=== PATIENT | male | born 1985 ===

== ENCOUNTER 2017-05-20 11:39 | Emergency (ER) | payer MEDICAID ==
[2017-05-20 11:46] VITALS: BP 124/74; PULSE 71; RESP 17; TEMP 98.6; O2SAT 98; BMI 20.3
--- NOTE | 2017-05-20 12:46 | ED PDOC ---
HPI: Abdomen Time Seen by Provider: 05/20/17 12:08 Chief Complaint (Nursing): Abdominal Pain Chief Complaint (Provider): Constipation, Fever History Per: Patient History/Exam Limitations: no limitations Onset/Duration Of Symptoms: Days (x2) Current Symptoms Are (Timing): Still Present Additional Complaint(s): Yoel is a 32 y/o male who presents to the ED complaining of a tactile fever for 2 days. Patient reports that he also has not had a bowel movement in 2 days , and is having rectal pain, which worsens when trying to have a bowel movement. He denies any rectal bleeding. PMD: Provider TBD Past Medical History Reviewed: Historical Data, Nursing Documentation, Vital Signs Vital Signs: Last Vital Signs Temp 98.6 F 05/20/17 11:46 Pulse 71 05/20/17 11:46 Resp 17 05/20/17 11:46 BP 124/74 05/20/17 11:46 Pulse Ox 98 05/20/17 12:49 - Medical History PMH: Depression, Seizures - Family History Family History: States: Unknown Family Hx - Social History Current smoker - smoking cessation education provided: No Alcohol: None Drugs: Denies - Home Medications Home Medications: Ambulatory Orders Medication Instructions Recorded Acetaminophen/Butalbital/Caf 05/04/15 [Fioricet] Carbamazepine [Carbamazapine] 800 mg 05/04/15 Famotidine [Pepcid] 20 mg PO BID 05/04/15 Lamotrigine [Lamictal] 05/04/15 Carbamazepine 400 mg PO BID #90 tablet 06/19/16 Docusate [Colace] 100 mg PO Q12H PRN #10 cap 05/20/17 Hydrocortisone 2.5% (Rectal) 30 applic DE BID #1 tube 05/20/17 [Anusol-HC] - Allergies Allergies/Adverse Reactions: Allergies Allergy/AdvReac Type Severity Reaction Status Date / Time No Known Allergies Allergy Verified 05/04/15 14:36 Review of Systems ROS Statement: Except As Marked, All Systems Reviewed And Found Negative Constitutional: Positive for: Fever Gastrointestinal: Positive for: Constipation, Rectal Pain. Negative for: Other (Bleeding) Physical Exam - Reviewed Nursing Documentation Reviewed: Yes Vital Signs Reviewed: Yes - Physical Exam Appears: Positive for: Non-toxic, No Acute Distress Head Exam: Positive for: ATRAUMATIC, NORMAL INSPECTION, NORMOCEPHALIC Skin: Positive for: Normal Color, Warm, Dry Eye Exam: Positive for: Normal appearance Neck: Positive for: Normal Cardiovascular/Chest: Positive for: Regular Rate, Rhythm. Negative for: Murmur Respiratory: Positive for: Normal Breath Sounds. Negative for: Respiratory Distress Gastrointestinal/Abdominal: Positive for: Normal Exam, Bowel Sounds, Soft. Negative for: Tenderness, Distended, Guarding Rectal: Positive for: Normal Exam (External exam - small fissure ) Neurologic/Psych: Positive for: Alert, Oriented - ECG O2 Sat by Pulse Oximetry: 98 (RA) Pulse Ox Interpretation: Normal Medical Decision Making Medical Decision Making: Time: 12:26 Initial Plan: --Ordered X-Ray Abdomen w/ Chest Scribe Attestation: Documented by Rufina Mann, acting as a scribe for Nilam Schulz PA-C Provider Scribe Attestation: All medical record entries made by the Scribe were at my direction and personally dictated by me. I have reviewed the chart and agree that the record accurately reflects my personal performance of the history, physical exam, medical decision making, and the department course for this patient. I have also personally directed, reviewed, and agree with the discharge instructions and disposition. Disposition - Clinical Impression Clinical Impression: Anal fissure, Constipation - Patient ED Disposition Is Patient to be Admitted: No Counseled Patient/Family Regarding: Diagnosis, Need For Followup, Rx Given - Disposition Disposition: Routine/Home Disposition Time: 14:32 Condition: GOOD Prescriptions: Docusate [Colace] 100 mg PO Q12H PRN #10 cap PRN Reason: Constipation Hydrocortisone 2.5% (Rectal) [Anusol-HC] 30 applic DE BID #1 tube Instructions: Anal Fissure (ED) Forms: [employer] (Albanian)
--- NOTE | 2017-05-20 14:28 | RAD ---
HISTORY: constipation COMPARISON: No prior. FINDINGS: BOWEL: There mildly distended central small bowel loops with multiple air-fluid levels identified free gas seen throughout the colon as well as retained fecal material. There is no prominent free intrarenal gas. Overall, the pattern is nonspecific. Bold a developing ileus may be present though a distal small bowel obstruction is difficult to completely exclude. Clinical correlation and of radiographic or CT follow-up is advised. BONES: Normal. OTHER FINDINGS: None. IMPRESSION: Nonspecific bowel gas pattern is appreciated consider follow-up radiographic or even CT imaging as clinically warranted. Please see discussion above.
== END 2017-05-20 13:45 | disposition home or self-care (01) ==
LOC: H.ER 11:39
DX: K59.00 Constipation, unspecified (principal); K60.2 Anal fissure, unspecified; F32.9 Major depressive disorder, single episode, unspecified; G40.909 Epilepsy, unspecified, not intractable, without status epilepticus

== ENCOUNTER 2017-05-25 03:38 | Emergency (ER) | payer MEDICAID ==
[2017-05-25 03:45] VITALS: BMI 19.2
--- NOTE | 2017-05-25 04:29 | ED PDOC ---
HPI: Seizure Time Seen by Provider: 05/25/17 03:44 Chief Complaint (Nursing): Seizure Chief Complaint (Provider): Seizure History Per: Patient, EMS, Family History/Exam Limitations: no limitations Number Of Seizures: Multiple Quality Of Seizure: Generalized Additional Complaint(s): Patient is a 32 y/o male with a history of epilepsy who was brought to the ED via EMS after he had 2 minute generalized tonic-clonic seizures. His mother states patient had a prolonged post-ictal phase which concerned her. He complains of a mild headache which he says he commonly gets after seizures. He denies cough, shortness of breath, chest pain, fever, or neck pain. Patient was incontinent of urine on arrival PMD: None Provided Past Medical History Reviewed: Historical Data, Nursing Documentation, Vital Signs Vital Signs: Last Vital Signs Temp 98.4 F 05/25/17 03:51 Pulse 75 05/25/17 03:51 Resp 18 05/25/17 03:51 BP 113/66 05/25/17 03:51 Pulse Ox 100 05/25/17 04:30 - Medical History PMH: Depression, Seizures - Family History Family History: States: Unknown Family Hx - Social History Current smoker - smoking cessation education provided: No Ex-Smoker (has not smoked in the last 12 months): No Alcohol: None Drugs: Denies - Home Medications Home Medications: Ambulatory Orders Medication Instructions Recorded Acetaminophen/Butalbital/Caf 05/04/15 [Fioricet] Carbamazepine [Carbamazapine] 800 mg 05/04/15 Famotidine [Pepcid] 20 mg PO BID 05/04/15 Lamotrigine [Lamictal] 05/04/15 Carbamazepine 400 mg PO BID #90 tablet 06/19/16 Docusate [Colace] 100 mg PO Q12H PRN #10 cap 05/20/17 Hydrocortisone 2.5% (Rectal) 30 applic DC BID #1 tube 05/20/17 [Anusol-HC] - Allergies Allergies/Adverse Reactions: Allergies Allergy/AdvReac Type Severity Reaction Status Date / Time No Known Allergies Allergy Verified 05/04/15 14:36 Review of Systems ROS Statement: Except As Marked, All Systems Reviewed And Found Negative Constitutional: Negative for: Fever Cardiovascular: Negative for: Chest Pain Respiratory: Negative for: Cough, Shortness of Breath Genitourinary Male: Positive for: Incontinence Musculoskeletal: Negative for: Neck Pain Neurological: Positive for: Seizures, Headache Physical Exam - Reviewed Nursing Documentation Reviewed: Yes Vital Signs Reviewed: Yes - Physical Exam Appears: Positive for: Non-toxic, No Acute Distress Head Exam: Positive for: ATRAUMATIC, NORMAL INSPECTION, NORMOCEPHALIC Skin: Positive for: Normal Color, Warm, Dry Eye Exam: Positive for: Normal appearance, EOMI, PERRL. Negative for: Nystagmus ENT: Positive for: Normal ENT Inspection Neck: Positive for: Normal, Painless ROM, Supple Cardiovascular/Chest: Positive for: Regular Rate, Rhythm. Negative for: Edema, Murmur Respiratory: Positive for: Normal Breath Sounds. Negative for: Wheezing, Respiratory Distress Gastrointestinal/Abdominal: Positive for: Normal Exam, Bowel Sounds, Soft. Negative for: Tenderness Back: Positive for: Normal Inspection Extremity: Positive for: Normal ROM. Negative for: Pedal Edema, Deformity Neurologic/Psych: Positive for: Alert, Oriented - Laboratory Results Result Diagrams: 05/25/17 05:16 05/25/17 05:16 - ECG O2 Sat by Pulse Oximetry: 100 (RA) Pulse Ox Interpretation: Normal Medical Decision Making Medical Decision Making: Time: 3:45 Initial Impression: 32 y/o male w/ breakthrough seizure Initial Plan: --CT Head w/o Contrast --EKG --Alcohol Serum --Carbamazepine --CMP --Urine Drug Screen --CBC --Lamotrigine --Tylenol --Accucheck --Urinalysis Labs reviewed show no clinically significnat abnormalities. Patient seizure free for duration of Ed visit. CT Head NAD Patient stable upon dc Advised to f/u with Dr Tl Vera Seizure Stable Scribe Attestation: Documented by Melvin Solomon, acting as a scribe for Dr. Shubham Fuentes MD. Provider Scribe Attestation: All medical record entries made by the Scribe were at my direction and personally dictated by me. I have reviewed the chart and agree that the record accurately reflects my personal performance of the history, physical exam, medical decision making, and the department course for this patient. I have also personally directed, reviewed, and agree with the discharge instructions and disposition. Disposition - Clinical Impression Clinical Impression: Seizure disorder - Disposition Referrals: Gurmeet Boothe MD [Medical Doctor] - Disposition: Routine/Home Disposition Time: 06:00 Condition: STABLE Instructions: Recurrent Seizures in Adults (ED) Forms: [facility] [employer] (Indian) Print Language: SERBIAN
[2017-05-25 05:28] LABS: BASO % 0.2 % (0.0-2.0); EOS % 0.5 % (0.0-4.0); HEMATOCRIT 38.3 % (35.0-51.0); LYMPH # 2.2 K/uL (1.0-4.3); LYMPH % 25.5 % (20.0-40.0); MEAN CELL VOLUME 86.2 fl (80.0-94.0); MEAN CORPUSCULAR HEMOGLOBIN 28.5 pg (27.0-31.0); MEAN PLATELET VOLUME 9.3 fl (7.2-11.7); MONO # 0.6 K/uL (0.0-0.8); NEUT # 5.8 K/uL (1.8-7.0); NEUT % 66.8 % (50.0-75.0); RED CELL DISTRIBUTION WIDTH 13.2 % (11.5-14.5); WHITE BLOOD COUNT 8.7 K/uL (4.8-10.8)
[2017-05-25 05:40] LABS: ALB/GLOB RATIO 1.4 (1.0-2.1); ALCOHOL SERUM < 10 mg/dl (0-10); ALKALINE PHOSPHATASE 73 U/L (38-126); ALT/SGPT 42 U/L (21-72); AST/SGOT 36 U/L (17-59); BILIRUBIN,TOTAL < 0.1 mg/dl (0.2-1.3); BLOOD UREA NITROGEN 16 mg/dl (9-20); CALCIUM 8.3 mg/dL (8.4-10.2); CARBON DIOXIDE 23 mmol/L (22-30); CHLORIDE 110 mmol/L (98-107); GFR AFRICAN-AMERICAN > 60; GLUCOSE,RANDOM 104 mg/dL (75-110); POTASSIUM 3.5 MMOL/L (3.6-5.0); SODIUM 142 mmol/l (132-148); TOTAL PROTEIN 6.6 G/DL (6.3-8.2)
--- NOTE | 2017-05-25 05:52 | CT ---
EXAM: CT Head Without Intravenous Contrast CLINICAL HISTORY: 32 years old, male; Pain; Headache; Headache not specified TECHNIQUE: Axial computed tomography images of the head/brain without intravenous contrast. All CT scans at this facility use one or more dose reduction techniques, viz.: automated exposure control; ma/kV adjustment per patient size (including targeted exams where dose is matched to indication; i.e. head); or iterative reconstruction technique. Coronal and sagittal reformatted images were created and reviewed. COMPARISON: CT - HEAD W/O CONTRAST 2016-06-19 20:00 FINDINGS: Brain: Minimal atrophy. No intracranial hemorrhage. No mass. 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 No definite edema. Ventricles: No hydrocephalus. Bones/joints: No acute fracture. Chronic deformity medial wall of RIGHT orbit. Soft tissues: Unremarkable. Sinuses: No acute sinusitis. Mastoid air cells: No mastoid effusion. Orbits: Unremarkable as visualized. IMPRESSION: 1. No acute intracranial abnormality. 2. Incidental/non-acute findings are described above.
[2017-05-25 06:08] LABS: RBC URINE 4 /hpf (0-3); URINE BILIRUBIN NEGATIVE (NEGATIVE); URINE BLOOD NEGATIVE (NEGATIVE); URINE COLOR YELLOW (YELLOW); URINE GLUCOSE (UA) NEG (Normal); URINE KETONE NEGATIVE (NEGATIVE); URINE LEUKOCYTE ESTERASE NEG Leu/uL (Negative); URINE PROTEIN 30 mg/dL (NEGATIVE); URINE UROBILINOGEN 0.2-1.0 mg/dL (0.2-1.0); WBC URINE 1 /hpf (0-5)
[2017-05-25 07:10] VITALS: BP 131/79; PULSE 79; RESP 17; TEMP 98.1; O2SAT 99
--- NOTE | 2017-05-25 08:17 | CARD ---
APPROVED REPORT EKG Measurement Heart [id number] <Conclusion> Normal sinus rhythm Normal ECG
== END 2017-05-25 07:11 | disposition home or self-care (01) ==
LOC: H.ER 03:38
DX: G40.409 Other generalized epilepsy and epileptic syndromes, not intractable, without status epilepticus (principal); Z87.891 Personal history of nicotine dependence; Z86.59 Personal history of other mental and behavioral disorders